=== PATIENT | female | born 1990 | race Two or more races ===

== ENCOUNTER 2021-10-10 05:51 | Emergency (ER) | payer MEDICAID ==
[~2021-10-10] VITALS: Ht 165.1 cm; Wt 54.4 kg
[2021-10-10] MEDS ORDERED: KETAMINE 50mg/ML 10ml Vial (500mg/10ml) IV ONE (06:45)
[2021-10-10] MEDS ORDERED: HYDROmorphone HCL 2 MG/ML VL IV ONE (06:45)
[2021-10-10] MEDS ORDERED: ONDANSETRON HCL 4 MG/2 ML VIAL IV ONE ×2 (06:45→10:00)
[2021-10-10 09:15] VITALS: BP 109/75
== END 2021-10-10 07:39 | disposition home or self-care (01) ==
LOC: ER 05:51 → EDBD 05:51 → ER 07:39
DX: S43.005A Unspecified dislocation of left shoulder joint, initial encounter (principal); Z88.0 Allergy status to penicillin; X50.9XXA Other and unspecified overexertion or strenuous movements or postures, initial encounter; Y93.89 Activity, other specified; Y92.89 Other specified places as the place of occurrence of the external cause; Y99.8 Other external cause status
CPT/HCPCS: 23650; 73020; 73030; 96374; 96375; 96376; 99152; 99285; J1170; J2405